=== PATIENT | male | born 1985 | race African-American/Black ===

== ENCOUNTER 2018-04-22 20:26 | Emergency (ER) | payer SELFPAY ==
[~2018-04-22] VITALS: Ht 190.5 cm; Wt 83.9 kg
[2018-04-22 20:31] VITALS: BP 139/79
== END 2018-04-22 20:49 | disposition home or self-care (01) ==
LOC: ER 20:29
DX: J20.9 Acute bronchitis, unspecified (principal); F17.200 Nicotine dependence, unspecified, uncomplicated
CPT/HCPCS: 99283; A4606; Z7610

== ENCOUNTER 2019-02-09 20:17 | Emergency (ER) | payer MEDICAID ==
[~2019-02-09] VITALS: Ht 190.5 cm; Wt 86.6 kg
[2019-02-09 20:41] VITALS: BP 120/60
[2019-02-09] MEDS ORDERED: TETRACAINE HCL/PF 0.5% UD 2 ML BOTTLE ONE (20:58)
[2019-02-09] MEDS ORDERED: FLUORESCEIN SODIUM OPHTH 1 EA STRIP ONE (20:58)
[2019-02-09] MEDS ORDERED: FLUORESCEIN SODIUM OPHTH 1 EA STRIP OP ONE (22:30)
[2019-02-09] MEDS ORDERED: TETRACAINE HCL 0.5% OPHTALMIC 15 ML BOTTLE OP ONE (22:30)
== END 2019-02-09 22:22 | disposition home or self-care (01) ==
LOC: ER 20:17
DX: H10.89 Other conjunctivitis (principal); F17.200 Nicotine dependence, unspecified, uncomplicated